=== PATIENT | female | born 1950 | race Caucasian/White ===

== ENCOUNTER → 2016-11-01 | Outpatient (CLI) | payer MEDICARE ==
[~2016-11-01] MED LIST: DULOXETINE60 MG PO
[2016-11-01 08:06] LABS: HEMOGLOBIN 13.7 g/dL (12.2-16.2)
[2016-11-01 08:07] LABS: LYMPH % 42.1 % (10-50.0)
--- NOTE | 2016-11-01 08:31 | RADIOLOGY REPORT PS360 ---
HIP LT 2-3V W/PELVIS IF PERFOR HISTORY: LT HIP PAIN ORDERING PHYSICIAN: Percy Trevino MD PATIENT AGE: 66 years COMPARISON: None FINDINGS: No fracture or dislocation is evident. No significant degenerative change. No lytic or blastic change. Unremarkable soft tissues IMPRESSION: Negative left hip
[2016-11-01 09:25] LABS: BUN 12 mg/dL (7-18)
[2016-11-01 09:26] LABS: GFR (ESTIMATED) 99 ML/MIN (59-)
== END ==
LOC: LAB 07:33
PROVIDERS: Internal Medicine
DX: M70.62 Trochanteric bursitis, left hip (principal); E78.4 Other hyperlipidemia; R73.01 Impaired fasting glucose; Z86.2 Personal history of diseases of the blood and blood-forming organs and certain disorders involving the immune mechanism